=== PATIENT | female | born 1995 | race Caucasian/White ===

== ENCOUNTER 2016-10-12 14:28 | Emergency (ER) | payer BC ==
[2016-10-12 14:59] VITALS: BP 128/62
--- NOTE | 2016-10-12 15:26 | UC ---
UC General HPI - HPI Summary HPI Summary: patient has been very nauseated and her period was different this last time. - History of Current Complaint Chief Complaint: UCGI Stated Complaint: NAUSEA Time Seen by Provider: 10/12/16 14:49 Hx Obtained From: Patient Onset/Duration: Sudden Onset, Lasting Days Timing: Constant Onset Severity: Moderate Current Severity: Moderate Associated Signs & Symptoms: Positive: Nausea - Allergy/Home Medications Allergies/Adverse Reactions: Allergies Allergy/AdvReac Type Severity Reaction Status Date / Time No Known Allergies Allergy Verified 10/12/16 14:59 PMH/Surg Hx/FS Hx/Imm Hx Previously Healthy: Yes - Surgical History Surgical History: Yes Surgery Procedure, Year, and Place: T & A; 08/2012 right kidney stone removed - Family History Known Family History: Positive: Hypertension - Social History Alcohol Use: Weekly Alcohol Amount: 15 Substance Use Type: None Smoking Status (MU): Light Every Day Tobacco Smoker Type: Cigars Review of Systems Constitutional: Fatigue Skin: Negative Eyes: Negative ENT: Negative Respiratory: Negative Cardiovascular: Negative Gastrointestinal: Vomiting, Other Genitourinary: Negative Motor: Negative Neurovascular: Negative Musculoskeletal: Negative Neurological: Negative Psychological: Negative All Other Systems Reviewed And Are Negative: Yes Physical Exam Triage Information Reviewed: Yes Appearance: Well-Appearing, Well-Nourished, Ill-Appearing Vital Signs: Initial Vital Signs Temp 98.5 F 10/12/16 14:41 Pulse 84 10/12/16 14:41 Resp 18 10/12/16 14:41 BP 128/62 10/12/16 14:41 Vital Signs Reviewed: Yes Eye Exam: Normal Eyes: Positive: Conjunctiva Clear ENT Exam: Normal ENT: Positive: Hearing grossly normal, Pharynx normal, TMs normal Dental Exam: Normal Neck exam: Normal Neck: Positive: Supple, Nontender, No Lymphadenopathy Respiratory Exam: Normal Respiratory: Positive: Chest non-tender, Lungs clear, Normal breath sounds Cardiovascular Exam: Normal Cardiovascular: Positive: RRR, No Murmur, Pulses Normal Abdominal Exam: Normal Abdomen Description: Positive: Nontender, No Organomegaly, Soft Bowel Sounds: Positive: Present Musculoskeletal Exam: Normal Musculoskeletal: Positive: Strength Intact, ROM Intact, No Edema Neurological Exam: Normal Neurological: Positive: Alert, Muscle Tone Normal Psychological Exam: Normal Skin Exam: Normal Course/Dx - Course Course Of Treatment: hx obtained, exam performed, meds reviewed, UA neg, Urine is positive. given premethazine for nausea, educated on basic care of body and medications to avoid. - Differential Dx - Multi-Symptom Provider Diagnoses: nausea. Discharge - Discharge Plan Condition: Stable Disposition: HOME Prescriptions: Vitamin [Calna] 1 tab PO DAILY #30 tab Patient Education Materials: Nausea and Vomiting in (ED), First Trimester (ED) Referrals: No Primary Care Phys,NOPCP [Primary Care Provider] - Additional Instructions: 1. Use only Tylenol for pain. 2. NO cough medications 3. Call and make an appointment with an OB doctor. 4. Follow up with any of the symptoms listed in the paperwork.
== END 2016-10-12 15:38 | disposition home or self-care (01) ==
LOC: UCCORT 14:28
DX: O21.0 Mild hyperemesis gravidarum (principal); Z3A.00 Weeks of gestation of pregnancy not specified; O99.331 Smoking (tobacco) complicating pregnancy, first trimester; F17.290 Nicotine dependence, other tobacco product, uncomplicated
CPT/HCPCS: 81003; 84702; 99202; G0463

== ENCOUNTER 2017-08-02 19:07 | Emergency (ER) | payer BC ==
[2017-08-02 19:31] VITALS: BP 127/74
[2017-08-02] MEDS ORDERED: Polymyx/Trimethoprim OPTH* 10 ML BTL BOTH EYES ONE (19:59)
--- NOTE | 2017-08-02 20:01 | UC ---
Eye Complaint HPI - HPI Summary HPI Summary: STATES MAY HAVE PINK EYE. BEGAN IN R EYE WITH RED THEN GREEN DRAINAGE AND NOW BOTH EYES. NO CONTACT USE, EYE PAIN OR VISUAL CHANGES. - History of Current Complaint Chief Complaint: UCEye Stated Complaint: BILATERAL EYE ISSUE Time Seen by Provider: 08/02/17 19:54 Hx Obtained From: Patient Hx Last Menstrual Period: 09/05/16 spotting, previous WNL menses 08/01 Onset/Duration: Gradual Onset Timing: Constant Pain Intensity: 2 Aggravating Factor(s): Nothing Alleviating Factor(s): Nothing Associated Signs And Symptoms: Positive: Drainage (Purulent). Negative: Photophobia, Vision Impairment Bilateral, Fever - Risk Factors Penetrating Injury Risk Factor: Negative Globe Rupture Risk Factors: Negative Acute Glaucoma Risk Factors: Negative Optic Artery Occlusion Risk Factors: Negative - Allergies/Home Medications Allergies/Adverse Reactions: Allergies Allergy/AdvReac Type Severity Reaction Status Date / Time No Known Allergies Allergy Verified 08/02/17 19:24 Home Medications: Home Medications NK [No Home Medications Reported] 08/02/17 [History Confirmed 08/02/17] PMH/Surg Hx/FS Hx/Imm Hx Previously Healthy: Yes - Surgical History Surgical History: Yes Surgery Procedure, Year, and Place: T & A; 08/2012 right kidney stone removed - Family History Known Family History: Positive: Hypertension - Social History Lives: With Family Alcohol Use: Weekly Alcohol Amount: 1-2 DRINKS Substance Use Type: None Smoking Status (MU): Never Smoked Tobacco Type: Cigars - Immunization History Most Recent Tetanus Shot: UTD Vaccination Up to Date: Yes Review of Systems Constitutional: Negative Skin: Negative Eyes: Drainage, Eye Redness ENT: Negative Respiratory: Negative Cardiovascular: Negative Gastrointestinal: Negative Genitourinary: Negative Motor: Negative Neurovascular: Negative Musculoskeletal: Negative Neurological: Negative Psychological: Negative Is Patient Immunocompromised?: No All Other Systems Reviewed And Are Negative: Yes Physical Exam Triage Information Reviewed: Yes Appearance: Well-Appearing Vital Signs: Initial Vital Signs Temp 99.2 F 08/02/17 19:25 Pulse 81 08/02/17 19:25 Resp 16 08/02/17 19:25 BP 127/74 08/02/17 19:25 Pulse Ox 99 08/02/17 19:25 Vital Signs Reviewed: Yes Eyes: Positive: Conjunctiva Inflamed, Other: - SCANT GREEN EXUDATE LASHES. PERRL , EOMI. ENT: Positive: Pharynx normal, TMs normal, Other - NO AURICULAR ADENOPATHY. Negative: Nasal congestion, Nasal drainage Neck: Positive: Supple, Nontender, No Lymphadenopathy Respiratory: Positive: Lungs clear, Normal breath sounds Cardiovascular: Positive: RRR, No Murmur Abdomen Description: Positive: Nontender, No Organomegaly, Soft Bowel Sounds: Positive: Present Musculoskeletal: Positive: ROM Intact Neurological: Positive: Alert Psychological: Positive: Age Appropriate Behavior Skin Exam: Normal Eye Complaint Course/Dx - Course Course Of Treatment: NO CONCERN FOR ORBITAL CELLULITIS, CORNEAL ULCERATIONS - Differential Dx/Diagnosis Provider Diagnoses: BILATERAL PINK EYE Discharge - Discharge Plan Condition: Stable Disposition: HOME Patient Education Materials: Conjunctivitis (ED) Referrals: Umm Payan MD [Primary Care Provider] - 5 Days Additional Instructions: POLYTRIM EYE DROPS. ONE DROP EACH EYE EVERY 3 HOURS WHILE AWAKE FOR 7 DAYS
== END 2017-08-02 20:15 | disposition home or self-care (01) ==
LOC: UCCORT 19:07
DX: H10.33 Unspecified acute conjunctivitis, bilateral (principal)
CPT/HCPCS: 99212; G0463